=== PATIENT | female | born 1980 | race Caucasian/White ===

== ENCOUNTER 2018-07-05 14:45 | Emergency (ER) | payer OTHER ==
[2018-07-05] MEDS ORDERED: HYDROmorphONE/DILAUDID 2 MG/ML INJ IVP ONE (15:14)
[2018-07-05] MEDS ORDERED: NS 500 ML IV ONE (15:14)
[2018-07-05 15:23] LABS: PLATELET COUNT 233 10^3/uL (150-400)
--- NOTE | 2018-07-05 15:26 | CPEKG ---
Test Reason : OPEN Blood Pressure : / mmHG Vent. Rate : 086 BPM Atrial Rate : 085 BPM P-R Int : 147 ms QRS Dur : 088 ms QT Int : 372 ms P-R-T Axes : 062 067 054 degrees QTc Int : 445 ms Sinus rhythm Atrial premature complex Confirmed by Omar Welch ([id number]) on 07/05/2018 3:25:37 PM Referred By: Venus Miles Confirmed By:Omar Welch
--- NOTE | 2018-07-05 15:31 | EDPHY ---
H & P Stated Complaint: c/o L sided cp/intermittent sob x 10 days Time Seen by Provider: 07/05/18 14:55 HPI/ROS: CHIEF COMPLAINT: High blood pressure, strong palpitations, chest pain HISTORY OF PRESENT ILLNESS: 37-year-old female presents reporting that about 1 month ago, was getting acupuncture, her purification operator noticed that her blood pressure was high. She has felt like it has been gradually increasing since that time. 10 days ago she began to notice episodes, lasting hours, of a "pounding heart", describing the palpitations as feeling that her heart rate was too fast and too strong. Yesterday patient had an episode of a very severe crampy left-sided chest discomfort with severe pain under her left breast, radiating across her left chest, along with tingling in her left hand and shoulders. She felt short of breath. She felt lightheaded and dizzy. Episode lasted several minutes. She had a recurrence of this chest discomfort today. Starting at 2:15 p.m.. Chest pain is currently present, rates her pain at 1/10 REVIEW OF SYSTEMS: A comprehensive 10 system review of systems was reviewed and is otherwise negative aside from elements mentioned in the history of present illness and medical decision making. PAST MEDICAL HISTORY: Bulimia. SOCIAL HISTORY: Here with a friend. Nonsmoker. VITAL SIGNS: see nurse's notes. GENERAL: Well-developed, well-nourished, anxious, concerned about her blood pressure. In mild discomfort. Patient rates the discomfort as 2/10. HEENT: Atraumatic. Eyes: No injection or icterus. Oropharynx: No erythema , no injection, no swelling. Neck: No JVD, no bruits, supple with no adenopathy. LUNGS: Clear to auscultation bilaterally, no wheezes, rhonchi or rales. CHEST: Mild tenderness to palpation across the left sternal border. CARDIAC: Regular rate and rhythm, no murmurs, no rubs, no gallops. ABDOMEN: Soft, nontender, nondistended, bowel sounds normal. BACK: No CVA tenderness. EXTREMITIES: No trauma. No clubbing, cyanosis or edema. Range of motion is normal throughout. NEURO: Alert and oriented , grossly nonfocal. SKIN: No diaphoresis, warm and dry, no rash. - Medical/Surgical History Hx Asthma: No Hx Chronic Respiratory Disease: No Hx Diabetes: No Hx Cardiac Disease: No Hx Renal Disease: No Hx Cirrhosis: No Hx Alcoholism: No Hx HIV/AIDS: No Hx Splenectomy or Spleen Trauma: No Other PMH: bunionectomy, bulemia when younger - Social History Smoking Status: Never smoked Constitutional: Initial Vital Signs Temperature (C) 36.7 C 07/05/18 14:48 Heart Rate 83 07/05/18 14:48 Respiratory Rate 18 07/05/18 14:48 Blood Pressure 160/104 H 07/05/18 14:48 O2 Sat (%) 99 07/05/18 14:48 O2 Delivery Mode Room Air Allergies/Adverse Reactions: Penicillins Allergy (Mild, Verified 04/05/12 08:48) Home Medications: Medication Instructions Recorded Azithromycin [Zithromax tab 250 mg] 1 dose PO DAILY #6 tab 04/05/12 Miscellaneous Medical Supply [NO 1 ea MISC AD 04/05/12 HOME MEDS] LORazepam [Ativan] 0.5 - 1 mg PO Q8 #12 tablet 07/05/18 Medical Decision Making - Diagnostics EKG Interpretation: 12-LEAD EKG: Please see the full report in [facility]. My interpretation: Normal sinus rhythm, no ST or T-wave changes Imaging Results: Xray: Chest x-ray was obtained. I viewed the images myself on the PACS system. My interpretation of the images is: No acute findings. The radiology interpretation is: Agrees. I discussed the results with the patient. Imaging: I viewed and interpreted images myself ED Course/Re-evaluation: 37-year-old female presenting to the emergency department with a month history of intermittent high blood pressure as well as 10 days of worsening shortness of breath, pounding heart rate, and concerns regarding chest pain. Patient has no risk factors for coronary artery disease. Her blood pressure is elevated in the emergency department, however at this point she does not carry a diagnosis of central hypertension. EKG demonstrates normal sinus rhythm. Electrolytes are normal. Troponin is negative. Chest x-ray is normal. D-dimer is negative. Laboratory evaluation is remarkable only for slightly elevated liver function tests. I did discuss this with the patient and she reports frequent alcohol use which she admits may be excessive. Patient received Ativan for anxiety. On re-examination she is resting comfortably. Patient was referred to primary care physician for further evaluation of her chest discomfort and anxiety. She may need treatment for essential hypertension although at the time of discharge her blood pressure had significantly diminished. Differential Diagnosis: After history and physical examination, the differential for chest pain was considered, including but not limited to, myocardial ischemia, acute coronary syndrome, pulmonary embolus, chest wall pain, anxiety, gastrointestinal causes, pleural inflammation and pulmonary infectious causes. - Data Points Laboratory Results: Laboratory Results 07/05/18 15:05 07/05/18 15:05 Medications Given: Discontinued Medications Hydromorphone HCl (Dilaudid) 0.5 mg IVP EDNOW ONE Stop: 07/05/18 15:15 Last Admin: 07/05/18 15:25 Dose: 0.5 mg Sodium Chloride (Ns) 500 mls @ 1,000 mls/hr IV EDNOW ONE PRN Reason: Protocol Stop: 07/05/18 15:43 Last Admin: 07/05/18 15:25 Dose: 500 mls Ketorolac Tromethamine (Toradol) 30 mg IVP EDNOW ONE Stop: 07/05/18 16:04 Last Admin: 07/05/18 16:13 Dose: 30 mg Lorazepam (Ativan Injection) 1 mg IVP EDNOW ONE Stop: 07/05/18 15:33 Last Admin: 07/05/18 15:35 Dose: 1 mg Point of Care Test Results: Chemistry 07/05/18 15:14 POC Troponin I 0.00 ng/mL ng/mL (0.00-0.08) Departure - Departure Disposition: Home, Routine, Self-Care Clinical Impression: Palpitations Chest pain Qualifiers: Chest pain type: unspecified Qualified Code(s): R07.9 - Chest pain, unspecified Condition: Good Instructions: Chest Pain (ED), Heart Palpitations (ED) Additional Instructions: No definitive cause of your chest pain has been identified. However, evaluation does not indicate any evidence for coronary artery disease, pneumonia , blood clot in the lungs, or electrolyte abnormalities. Your heart rate and heart rhythm or normal on our evaluation. Your blood pressure was elevated on arrival and the should be recheck. I recommend that you follow up with your physician tomorrow as previously scheduled for further evaluation of high blood pressure. With respect to the pounding heart rate or palpitations, a Holter monitor may be needed for further evaluation. This can be arranged by the primary care physician. You have also been given a referral to call box wirer. If you develop recurrent pounding heart symptoms, please check her blood pressure and try to relax. If you develop further spasm in your chest accompanied by hyperventilation, you may use Ativan 0.5 mg. You can try Tylenol for the discomfort. Return to the emergency department or seek care urgently if your worsening despite the above measures, if you have chest pain or palpitations associated with fainting. Referrals: Elida Jeffery [Primary Care Provider] - As per Instructions Jabari Boo MD [Medical Doctor] - As per Instructions (Follow up with Dr. Boo or 1 of his colleagues for further evaluation.) Prescriptions: LORazepam [Ativan] 0.5 - 1 mg PO Q8 #12 tablet
[2018-07-05] MEDS ORDERED: LORazepam 2 MG/ML INJ IVP ONE (15:32)
[2018-07-05] MEDS ORDERED: KETOROLAC 30 MG/1 ML SDV IVP ONE (16:03)
[2018-07-05 16:21] VITALS: BP 135/88
== END 2018-07-05 16:37 | disposition home or self-care (01) ==
DX: R00.2 Palpitations (principal); R07.9 Chest pain, unspecified; I10 Essential (primary) hypertension; E86.9 Volume depletion, unspecified
CPT/HCPCS: 84484-ER; 96374; J1170; J1885; J2060